=== PATIENT | female | born 1945 | race Caucasian/White ===

== ENCOUNTER 2017-10-05 11:45 | Inpatient (IN) | payer MEDICARE, OTHER ==
[2017-10-05] MEDS: SODIUM CHLORIDE 0.9% 1L BAG IV* (12:12)
[2017-10-05 12:14] LABS: ADD MAN DIFF? NO
[2017-10-05 12:16] LABS: WHITE BLOOD COUNT 12.5 10^3/ul (4.8-10.8)
[2017-10-05 12:16] LABS: BASOPHIL # 0.1 10^3/ul (0.0-0.1); BASOPHILS % 0.4 % (0.0-2.0); EOSINOPHILS # 0.1 10^3/ul (0.0-0.5); HEMATOCRIT 24.6 % (37.0-47.0); HEMOGLOBIN 8.3 g/dl (12.0-16.0); LYMPHOCYTES # 1.4 10^3/ul (0.8-2.9); LYMPHOCYTES % 10.8 % (15.0-51.0); MEAN CORPUSCULAR HEMOGLOBIN 35.8 pg (29.0-33.0); MEAN CORPUSCULAR HGB CONC 33.7 g/dl (32.0-37.0); MEAN PLATELET VOLUME 9.5 fl (7.4-10.4); MONOCYTE # 0.8 10^3/ul (0.3-0.9); MONOCYTES % 6.3 % (0.0-11.0); NEUTROPHIL # 10.1 10^3/ul (1.6-7.5); NEUTROPHILS % 80.9 % (39.0-77.0); PLATELET COUNT 305 10^3/UL (140-415); RED BLOOD COUNT 2.32 10^6/ul (4.20-5.40); RED CELL DISTRIBUTION WIDTH 13.7 % (11.5-14.5)
[2017-10-05] MEDS: ACYCLOVIR 500 MG in SOD CHLORIDE 0.9% 100 ML IVPB ×2 (12:30→21:17)
[2017-10-05 12:34] LABS: PROTIME 13.3 Sec (11.9-14.9)
[2017-10-05 12:35] LABS: PARTIAL THROMBOPLASTIN TIME 29.9 Sec (25.0-35.0)
[2017-10-05 12:40] LABS: ADD UMIC YES; UR ASCORBIC ACID 40 mg/dL (NEGATIVE); UR BILIRUBIN (Dip) NEGATIVE (NEGATIVE); UR BLOOD (Dip) NEGATIVE (NEGATIVE); UR CLARITY CLOUDY (CLEAR); UR COLOR YELLOW (YELLOW); UR GLUCOSE (Dip) 3+ mg/dL (NEGATIVE); UR KETONES (Dip) NEGATIVE (NEGATIVE); UR LEUKOCYTE ESTERASE (Dip) NEGATIVE Leu/ul (NEGATIVE); UR NITRITE (Dip) NEGATIVE (NEGATIVE); UR RBC 0 /HPF (0-5); UR SPECIFIC GRAVITY (Dip) 1.008 (1.003-1.030); UR TOTAL PROTEIN (Dip) 1+ mg/dl (NEGATIVE); UR UROBILINOGEN (Dip) NEGATIVE (NEGATIVE); UR WBC 0 /HPF (0-5)
[2017-10-05 12:52] LABS: LACTIC ACID 1.5 mmol/L (0.5-2.0)
[2017-10-05 12:53] LABS: ALANINE AMINOTRANSFERASE 129 IU/L (13-69); ALBUMIN 4.3 g/dl (3.3-4.9); ALBUMIN/GLOBULIN RATIO 1.13; ALKALINE PHOSPHATASE 146 IU/L (42-121); ANION GAP 15 (8-16); ASPARTATE AMINO TRANSFERASE 163 IU/L (15-46); BILIRUBIN,INDIRECT 0.1 mg/dl (0-1.1); BILIRUBIN,TOTAL 0.1 mg/dl (0.2-1.3); BLOOD UREA NITROGEN 39 mg/dl (7-20); CALCIUM 10.9 mg/dl (8.4-10.2); CARBON DIOXIDE 26 mmol/L (21-31); CHLORIDE 101 mmol/L (97-110); CREATININE 1.81 mg/dl (0.44-1.00); GLUCOSE 216 mg/dl (70-220); POTASSIUM 4.5 mmol/L (3.5-5.1); SODIUM 137 mmol/L (135-144); TOTAL PROTEIN 8.1 g/dl (6.1-8.1)
[2017-10-05 13:08] LABS: TROPONIN-I 0.206 ng/ml (0.000-0.120)
[2017-10-05] MEDS: LEVOFLOXACIN 750MG/D5W (PMX) 150 ML IVPB (13:48)
[2017-10-05] MEDS ORDERED: BISACODYL 10 MG SUPP PR (14:00)
[2017-10-05] MEDS ORDERED: NACL 0.9% 3 ML SYG IV (14:00)
[2017-10-05] MEDS ORDERED: NITROGLYCERIN (SL) 0.4 MG TAB SL (14:00)
[2017-10-05] MEDS ORDERED: ONDANSETRON 4 MG INJ IV (14:00)
[2017-10-05] MEDS ORDERED: DOCUSATE SODIUM 100 MG CAP PO (14:00)
[2017-10-05] MEDS ORDERED: MAGNESIUM HYDROXIDE 30ML CUP PO (14:00)
[2017-10-05] MEDS ORDERED: ACETAMINOPHEN 650 MG SUPP PR (14:00)
[2017-10-05] MEDS ORDERED: ONDANSETRON 4 MG TAB GTB (14:30)
[2017-10-05] MEDS: VANCOMYCIN 1 GM (PMX) 250 ML IVPB (14:40)
[2017-10-05] MEDS ORDERED: GLUCAGON 1 MG INJ IM (15:30)
[2017-10-05] MEDS ORDERED: GLUCOSE GEL 15 GRAM TUBE BUCCAL (15:30)
[2017-10-05] MEDS ORDERED: GLUCOSE GEL 15 GRAM TUBE PO ×2 (15:30)
[2017-10-05] MEDS ORDERED: DEXTROSE 50% 50 ML SYRINGE IV ×2 (15:30)
[2017-10-05] MEDS: SOD CHLORIDE 0.9% 1,000 ML IV (16:12)
[2017-10-05 18:25] LABS: LACTIC ACID 1.2 mmol/L (0.5-2.0)
[2017-10-05 18:26] LABS: CREATINE KINASE 101 IU/L (23-200)
[2017-10-05] MEDS: INSULIN ASPART [NOVOLOG] 3 ML PEN SC ×2 (18:26→21:00)
[2017-10-05 18:38] LABS: CK INDEX 1.5
[2017-10-05 18:45] LABS: TROPONIN-I 0.205 ng/ml (0.000-0.120)
[2017-10-05] MEDS ORDERED: PENDING SANTYL ORDER FOR WOUND CARE XX (19:00)
[2017-10-05] MEDS: ALBUTEROL/IPRATROPIUM (NEB) 3 ML AMP INH (20:21)
[2017-10-05] MEDS ORDERED: SIMVASTATIN GTB (21:00)
[2017-10-05] MEDS ORDERED: WHEAT DEXTRIN GTB (21:00)
[2017-10-05] MEDS ORDERED: EZETIMIBE GTB (21:00)
[2017-10-05] MEDS ORDERED: FAMOTIDINE 20 MG INJ IV (21:00)
[2017-10-05] MEDS: EZETIMIBE 10 MG TAB PO (21:17)
[2017-10-05] MEDS: DOCUSATE SODIUM 100 MG CAP PO (21:17)
[2017-10-05] MEDS: ATORVASTATIN 10 MG TAB PO (21:17)
[2017-10-05] MEDS: BACLOFEN 10 MG TAB GTB (21:17)
[2017-10-05] MEDS: HEPARIN 5,000 UNIT/0.5 ML VIAL SC (21:21)
[2017-10-06] MEDS: ACCU-CHEK XX (01:29)
[2017-10-06 01:48] LABS: CREATINE KINASE 95 IU/L (23-200)
[2017-10-06 02:01] LABS: CK INDEX 1.6; CK-MB 1.49 ng/ml (0.0-2.4)
[2017-10-06 02:02] LABS: TROPONIN-I 0.181 ng/ml (0.000-0.120)
[2017-10-06] MEDS: ALBUTEROL/IPRATROPIUM (NEB) 3 ML AMP INH ×4 (02:34→19:31)
[2017-10-06] MEDS: LANSOPRAZOLE 30 MG CAP GTB (05:54)
[2017-10-06] MEDS: SOD CHLORIDE 0.9% 1,000 ML IV ×2 (05:54→09:08)
[2017-10-06] MEDS: HEPARIN 5,000 UNIT/0.5 ML VIAL SC (05:57)
[2017-10-06] MEDS: LEVOTHYROXINE 75 MCG TAB GTB (06:04)
[2017-10-06 06:40] LABS: ADD MAN DIFF? NO
[2017-10-06 06:41] LABS: WHITE BLOOD COUNT 6.3 10^3/ul (4.8-10.8)
[2017-10-06 06:41] LABS: ABNORMAL IP MESSAGE 1; BASOPHILS % 0.3 % (0.0-2.0); EOSINOPHILS # 0.1 10^3/ul (0.0-0.5); EOSINOPHILS % 0.8 % (0.0-7.0); HEMATOCRIT 20.5 % (37.0-47.0); LYMPHOCYTES # 0.5 10^3/ul (0.8-2.9); LYMPHOCYTES % 7.1 % (15.0-51.0); MEAN CORPUSCULAR HEMOGLOBIN 35.3 pg (29.0-33.0); MEAN CORPUSCULAR HGB CONC 32.7 g/dl (32.0-37.0); MEAN CORPUSCULAR VOLUME 107.9 fl (82.0-101.0); MEAN PLATELET VOLUME 9.6 fl (7.4-10.4); MONOCYTE # 0.6 10^3/ul (0.3-0.9); NEUTROPHIL # 5.1 10^3/ul (1.6-7.5); PLATELET COUNT 238 10^3/UL (140-415); RED CELL DISTRIBUTION WIDTH 13.6 % (11.5-14.5)
[2017-10-06 06:53] LABS: HEMOGLOBIN 6.7 g/dl (12.0-16.0); POSITIVE DIFF @See below
[2017-10-06 07:20] LABS: ALANINE AMINOTRANSFERASE 104 IU/L (13-69); ALBUMIN 3.2 g/dl (3.3-4.9); ALBUMIN/GLOBULIN RATIO 0.96; ALKALINE PHOSPHATASE 117 IU/L (42-121); ANION GAP 14 (8-16); ASPARTATE AMINO TRANSFERASE 106 IU/L (15-46); BILIRUBIN,INDIRECT 0.3 mg/dl (0-1.1); BILIRUBIN,TOTAL 0.3 mg/dl (0.2-1.3); BLOOD UREA NITROGEN 29 mg/dl (7-20); CARBON DIOXIDE 20 mmol/L (21-31); CHLORIDE 107 mmol/L (97-110); CHOLESTEROL 139 mg/dl (100-200); CREATININE 1.44 mg/dl (0.44-1.00); GLUCOSE 270 mg/dl (70-220); HDL CHOLESTEROL 23 mg/dl (33-92); MAGNESIUM 1.8 mg/dl (1.7-2.5); POTASSIUM 4.1 mmol/L (3.5-5.1); SODIUM 137 mmol/L (135-144); TOTAL PROTEIN 6.5 g/dl (6.1-8.1)
[2017-10-06 07:27] LABS: FREE T4 (FREE THYROXINE) 0.55 ng/dl (0.78-2.44)
[2017-10-06 07:55] LABS: BAND NEUTROPHILS #M 0.2 10^3/ul (0.0-0.6); BAND NEUTROPHILS % (M) 4 % (0-4); BASOPHILS % (M) 1 % (0-2); EOSINOPHILS % (M) 1 % (0-7); GIANT THROMBO% (M) 1 % (0-0); LYMPHOCYTES #M 0.2 10^3/ul (0.8-2.9); LYMPHOCYTES % (M) 4 % (15-51); MONOCYTE #M 0.3 10^3/ul (0.3-0.9); MONOCYTES % (M) 5 % (0-11); PLATELET ESTIMATE NORMAL; POLYCHROMASIA 2+ (0-0); SEG NEUT #M 5.4 10^3/ul (1.6-7.5); SEGMENTED NEUTROPHILS (M) % 85 % (39-77); SMUDGE%M 8 % (0-0)
[2017-10-06 08:36] LABS: LDL CHOLESTEROL,CALCULATED 5 mg/dl; TRIGLYCERIDES 555 mg/dl (0-149)
[2017-10-06] MEDS: ACYCLOVIR 500 MG in SOD CHLORIDE 0.9% 100 ML IVPB ×2 (09:05→21:53)
[2017-10-06] MEDS: FERROUS SULFATE 60 MG/ML 5ML CUP GTB (09:05)
[2017-10-06] MEDS: CLOPIDOGREL 75 MG TAB PO (09:06)
[2017-10-06] MEDS: LINAGLIPTIN 5 MG TABLET GTB (09:06)
[2017-10-06] MEDS: L ACIDOPHIL/B LACTIS/B LONGUM CAPSULE PO (09:06)
[2017-10-06] MEDS: ASPIRIN 81 MG TAB PO (09:06)
[2017-10-06] MEDS: FENOFIBRATE 145 MG TAB GTB (09:07)
[2017-10-06] MEDS: DOCUSATE SODIUM 100 MG CAP PO ×2 (09:07→21:56)
[2017-10-06] MEDS: BACLOFEN 10 MG TAB GTB ×2 (09:07→21:54)
[2017-10-06] MEDS: CYANOCOBALAMIN 500 MCG TAB GTB (09:07)
[2017-10-06] MEDS: ASCORBIC ACID 500 MG TAB GTB (09:07)
[2017-10-06] MEDS: FOLIC ACID 1 MG TAB GTB (09:07)
[2017-10-06] MEDS: MULTIVITAMINS 30 ML CUP GTB (09:07)
[2017-10-06] MEDS: LISINOPRIL 10 MG TAB GTB (09:07)
[2017-10-06] MEDS: INSULIN ASPART [NOVOLOG] 3 ML PEN SC ×5 (09:22→21:00)
[2017-10-06] MEDS: SOD CHLORIDE 0.9% 250 ML IV* (09:37)
[2017-10-06] MEDS ORDERED: FOLIC ACID 1 MG TAB GTB (10:30)
[2017-10-06 12:17] LABS: CREATINE KINASE 142 IU/L (23-200)
[2017-10-06] MEDS: CIPROFLOXACIN 0.3% 2.5 ML OPH LEFT EYE ×4 (12:19→21:54)
[2017-10-06 12:30] LABS: CK INDEX 3.8; CK-MB 5.41 ng/ml (0.0-2.4)
[2017-10-06 18:25] LABS: IMMEDIATE SPIN CROSSMATCH 1 2
[2017-10-06] MEDS: ATORVASTATIN 10 MG TAB PO (21:00)
[2017-10-06] MEDS: COLLAGENASE 5 GM (UD JAR) TOP (21:56)
[2017-10-06] MEDS: EZETIMIBE 10 MG TAB PO (22:00)
[2017-10-06] MEDS: INSULIN GLARGINE [LANTus] (100 UNITS/ML) SYG SC (22:36)
[2017-10-07] MEDS: INSULIN ASPART [NOVOLOG] 3 ML PEN SC ×9 (01:00→21:58)
[2017-10-07] MEDS: CIPROFLOXACIN 0.3% 2.5 ML OPH LEFT EYE ×6 (01:52→21:36)
[2017-10-07] MEDS: ALBUTEROL/IPRATROPIUM (NEB) 3 ML AMP INH ×4 (02:07→20:42)
[2017-10-07] MEDS: ACCU-CHEK XX ×2 (02:42)
[2017-10-07] MEDS: LANSOPRAZOLE 30 MG CAP GTB (05:48)
[2017-10-07] MEDS: LEVOTHYROXINE 75 MCG TAB GTB (06:05)
[2017-10-07 06:32] LABS: ADD MAN DIFF? NO
[2017-10-07 06:39] LABS: WHITE BLOOD COUNT 6.4 10^3/ul (4.8-10.8)
[2017-10-07 06:39] LABS: BASOPHIL # 0.1 10^3/ul (0.0-0.1); BASOPHILS % 0.9 % (0.0-2.0); EOSINOPHILS # 0.2 10^3/ul (0.0-0.5); EOSINOPHILS % 2.8 % (0.0-7.0); HEMATOCRIT 30.3 % (37.0-47.0); HEMOGLOBIN 10.2 g/dl (12.0-16.0); LYMPHOCYTES # 0.9 10^3/ul (0.8-2.9); LYMPHOCYTES % 14.7 % (15.0-51.0); MEAN CORPUSCULAR HEMOGLOBIN 33.3 pg (29.0-33.0); MEAN CORPUSCULAR HGB CONC 33.7 g/dl (32.0-37.0); MEAN PLATELET VOLUME 10.4 fl (7.4-10.4); MONOCYTE # 0.9 10^3/ul (0.3-0.9); MONOCYTES % 14.2 % (0.0-11.0); NEUTROPHIL # 4.2 10^3/ul (1.6-7.5); NEUTROPHILS % 65.5 % (39.0-77.0); PLATELET COUNT 247 10^3/UL (140-415); RED BLOOD COUNT 3.06 10^6/ul (4.20-5.40); RED CELL DISTRIBUTION WIDTH 16.5 % (11.5-14.5)
[2017-10-07 07:05] LABS: MAGNESIUM 2.1 mg/dl (1.7-2.5)
[2017-10-07 07:05] LABS: PHOSPHORUS 1.7 mg/dl (2.5-4.9)
[2017-10-07 07:09] LABS: ALANINE AMINOTRANSFERASE 90 IU/L (13-69); ALBUMIN 3.3 g/dl (3.3-4.9); ALBUMIN/GLOBULIN RATIO 1.03; ALKALINE PHOSPHATASE 122 IU/L (42-121); ANION GAP 11 (8-16); ASPARTATE AMINO TRANSFERASE 83 IU/L (15-46); BILIRUBIN,INDIRECT 0.4 mg/dl (0-1.1); BILIRUBIN,TOTAL 0.4 mg/dl (0.2-1.3); BLOOD UREA NITROGEN 25 mg/dl (7-20); CARBON DIOXIDE 22 mmol/L (21-31); CHLORIDE 108 mmol/L (97-110); CREATININE 1.24 mg/dl (0.44-1.00); GLUCOSE 237 mg/dl (70-220); POTASSIUM 4.3 mmol/L (3.5-5.1); SODIUM 137 mmol/L (135-144); TOTAL PROTEIN 6.5 g/dl (6.1-8.1)
[2017-10-07] MEDS: COLLAGENASE 5 GM (UD JAR) TOP ×2 (09:00→21:37)
[2017-10-07] MEDS: L ACIDOPHIL/B LACTIS/B LONGUM CAPSULE PO ×2 (09:00)
[2017-10-07] MEDS: FERROUS SULFATE 60 MG/ML 5ML CUP GTB (09:18)
[2017-10-07] MEDS: MULTIVITAMINS 30 ML CUP GTB (09:18)
[2017-10-07] MEDS: DOCUSATE SODIUM 10 MG/ML (10ML CUP) GTB ×2 (09:19→21:36)
[2017-10-07] MEDS: CLOPIDOGREL 75 MG TAB PO (09:21)
[2017-10-07] MEDS: ASCORBIC ACID 500 MG TAB GTB (09:21)
[2017-10-07] MEDS: ASPIRIN 81 MG TAB PO (09:21)
[2017-10-07] MEDS: FENOFIBRATE 145 MG TAB GTB (09:21)
[2017-10-07] MEDS: FOLIC ACID 1 MG TAB GTB (09:21)
[2017-10-07] MEDS: LINAGLIPTIN 5 MG TABLET GTB (09:21)
[2017-10-07] MEDS: CYANOCOBALAMIN 500 MCG TAB GTB (09:21)
[2017-10-07] MEDS: BACLOFEN 10 MG TAB GTB ×2 (09:21→21:31)
[2017-10-07] MEDS: LISINOPRIL 10 MG TAB GTB (09:22)
[2017-10-07] MEDS: ACYCLOVIR 500 MG in SOD CHLORIDE 0.9% 100 ML IVPB ×2 (09:22→21:37)
[2017-10-07] MEDS: MUPIROCIN 2% 22 GM OINT TOP ×2 (12:48→21:37)
[2017-10-07] MEDS: EZETIMIBE 10 MG TAB PO (21:30)
[2017-10-07] MEDS: ATORVASTATIN 10 MG TAB PO (21:31)
[2017-10-07] MEDS: INSULIN GLARGINE [LANTus] (100 UNITS/ML) SYG SC (21:58)
[2017-10-08] MEDS: CIPROFLOXACIN 0.3% 2.5 ML OPH LEFT EYE ×6 (00:47→21:10)
[2017-10-08] MEDS: INSULIN ASPART [NOVOLOG] 3 ML PEN SC ×9 (00:56→22:51)
[2017-10-08] MEDS: ACCU-CHEK XX ×2 (00:57)
[2017-10-08] MEDS: ALBUTEROL/IPRATROPIUM (NEB) 3 ML AMP INH ×4 (02:15→19:49)
[2017-10-08] MEDS: LEVOTHYROXINE 75 MCG TAB GTB (06:13)
[2017-10-08] MEDS: LANSOPRAZOLE 30 MG CAP GTB (06:14)
[2017-10-08] MEDS: LISINOPRIL 10 MG TAB GTB (09:00)
[2017-10-08 09:14] LABS: ADD MAN DIFF? NO
[2017-10-08] MEDS: COLLAGENASE 5 GM (UD JAR) TOP ×2 (09:17→21:08)
[2017-10-08] MEDS: ACYCLOVIR 500 MG in SOD CHLORIDE 0.9% 100 ML IVPB ×2 (09:17→21:24)
[2017-10-08] MEDS: FENOFIBRATE 145 MG TAB GTB (09:18)
[2017-10-08] MEDS: FOLIC ACID 1 MG TAB GTB (09:18)
[2017-10-08] MEDS: L ACIDOPHIL/B LACTIS/B LONGUM CAPSULE PO (09:18)
[2017-10-08] MEDS: ASCORBIC ACID 500 MG TAB GTB (09:18)
[2017-10-08] MEDS: LINAGLIPTIN 5 MG TABLET GTB (09:18)
[2017-10-08] MEDS: ASPIRIN 81 MG TAB PO (09:18)
[2017-10-08] MEDS: CLOPIDOGREL 75 MG TAB PO (09:18)
[2017-10-08] MEDS: DOCUSATE SODIUM 10 MG/ML (10ML CUP) GTB ×2 (09:20→21:07)
[2017-10-08] MEDS: MULTIVITAMINS 30 ML CUP GTB (09:20)
[2017-10-08] MEDS: MUPIROCIN 2% 22 GM OINT TOP ×2 (09:20→21:11)
[2017-10-08] MEDS: FERROUS SULFATE 60 MG/ML 5ML CUP GTB (09:20)
[2017-10-08 09:23] LABS: WHITE BLOOD COUNT 5.9 10^3/ul (4.8-10.8)
[2017-10-08 09:23] LABS: BASOPHILS % 0.7 % (0.0-2.0); EOSINOPHILS # 0.3 10^3/ul (0.0-0.5); EOSINOPHILS % 5.3 % (0.0-7.0); HEMATOCRIT 29.8 % (37.0-47.0); HEMOGLOBIN 10.2 g/dl (12.0-16.0); LYMPHOCYTES % 17.5 % (15.0-51.0); MEAN CORPUSCULAR HEMOGLOBIN 34.6 pg (29.0-33.0); MEAN CORPUSCULAR HGB CONC 34.2 g/dl (32.0-37.0); MEAN PLATELET VOLUME 10.4 fl (7.4-10.4); MONOCYTE # 0.5 10^3/ul (0.3-0.9); NEUTROPHIL # 3.9 10^3/ul (1.6-7.5); NEUTROPHILS % 65.8 % (39.0-77.0); PLATELET COUNT 260 10^3/UL (140-415); RED BLOOD COUNT 2.95 10^6/ul (4.20-5.40); RED CELL DISTRIBUTION WIDTH 16.2 % (11.5-14.5)
[2017-10-08 09:43] LABS: PHOSPHORUS 1.5 mg/dl (2.5-4.9)
[2017-10-08 09:43] LABS: MAGNESIUM 2.1 mg/dl (1.7-2.5)
[2017-10-08 09:51] LABS: ALANINE AMINOTRANSFERASE 71 IU/L (13-69); ALBUMIN 3.4 g/dl (3.3-4.9); ALBUMIN/GLOBULIN RATIO 1.03; ALKALINE PHOSPHATASE 109 IU/L (42-121); ANION GAP 10 (8-16); ASPARTATE AMINO TRANSFERASE 59 IU/L (15-46); BILIRUBIN,INDIRECT 0.1 mg/dl (0-1.1); BILIRUBIN,TOTAL 0.1 mg/dl (0.2-1.3); BLOOD UREA NITROGEN 28 mg/dl (7-20); CALCIUM 8.9 mg/dl (8.4-10.2); CARBON DIOXIDE 26 mmol/L (21-31); CHLORIDE 106 mmol/L (97-110); CREATININE 1.21 mg/dl (0.44-1.00); GLUCOSE 201 mg/dl (70-220); POTASSIUM 4.7 mmol/L (3.5-5.1); SODIUM 137 mmol/L (135-144); TOTAL PROTEIN 6.7 g/dl (6.1-8.1)
[2017-10-08] MEDS: BACLOFEN 10 MG TAB GTB ×2 (09:52→21:24)
[2017-10-08] MEDS: CYANOCOBALAMIN 500 MCG TAB GTB (09:53)
[2017-10-08] MEDS: NEUTRA-PHOS 250 MG PACKET GTB ×2 (13:37→21:07)
[2017-10-08] MEDS: EZETIMIBE 10 MG TAB PO (21:08)
[2017-10-08] MEDS: ATORVASTATIN 10 MG TAB PO (21:08)
[2017-10-08] MEDS: INSULIN GLARGINE [LANTus] (100 UNITS/ML) SYG SC (21:14)
[2017-10-09] MEDS: CIPROFLOXACIN 0.3% 2.5 ML OPH LEFT EYE ×6 (01:23→22:51)
[2017-10-09] MEDS: INSULIN ASPART [NOVOLOG] 3 ML PEN SC ×9 (01:33→23:03)
[2017-10-09] MEDS: ALBUTEROL/IPRATROPIUM (NEB) 3 ML AMP INH ×4 (01:41→20:42)
[2017-10-09] MEDS: ACCU-CHEK XX ×2 (02:00)
[2017-10-09] MEDS: LANSOPRAZOLE 30 MG CAP GTB (05:46)
[2017-10-09 06:29] LABS: ADD MAN DIFF? NO
[2017-10-09 06:33] LABS: WHITE BLOOD COUNT 6.5 10^3/ul (4.8-10.8)
[2017-10-09 06:33] LABS: BASOPHILS % 0.6 % (0.0-2.0); EOSINOPHILS # 0.2 10^3/ul (0.0-0.5); EOSINOPHILS % 3.7 % (0.0-7.0); HEMATOCRIT 30.4 % (37.0-47.0); HEMOGLOBIN 10.2 g/dl (12.0-16.0); LYMPHOCYTES # 1.3 10^3/ul (0.8-2.9); LYMPHOCYTES % 20.4 % (15.0-51.0); MEAN CORPUSCULAR HEMOGLOBIN 33.7 pg (29.0-33.0); MEAN CORPUSCULAR HGB CONC 33.6 g/dl (32.0-37.0); MEAN CORPUSCULAR VOLUME 100.3 fl (82.0-101.0); MEAN PLATELET VOLUME 10.2 fl (7.4-10.4); MONOCYTE # 0.5 10^3/ul (0.3-0.9); MONOCYTES % 8.3 % (0.0-11.0); NEUTROPHIL # 4.3 10^3/ul (1.6-7.5); NEUTROPHILS % 65.9 % (39.0-77.0); NUCLEATED RED BLOOD CELLS% 0.3 /100WBC (0.0-0.0); PLATELET COUNT 275 10^3/UL (140-415); RED BLOOD COUNT 3.03 10^6/ul (4.20-5.40); RED CELL DISTRIBUTION WIDTH 15.7 % (11.5-14.5)
[2017-10-09] MEDS: LEVOTHYROXINE 75 MCG TAB GTB (06:34)
[2017-10-09 07:03] LABS: MAGNESIUM 2.1 mg/dl (1.7-2.5)
[2017-10-09 07:03] LABS: PHOSPHORUS 2.3 mg/dl (2.5-4.9)
[2017-10-09 07:09] LABS: ALANINE AMINOTRANSFERASE 65 IU/L (13-69); ALBUMIN 3.5 g/dl (3.3-4.9); ALBUMIN/GLOBULIN RATIO 1.02; ALKALINE PHOSPHATASE 101 IU/L (42-121); ANION GAP 11 (8-16); ASPARTATE AMINO TRANSFERASE 53 IU/L (15-46); BILIRUBIN,INDIRECT 0.2 mg/dl (0-1.1); BILIRUBIN,TOTAL 0.2 mg/dl (0.2-1.3); BLOOD UREA NITROGEN 27 mg/dl (7-20); CALCIUM 8.4 mg/dl (8.4-10.2); CARBON DIOXIDE 23 mmol/L (21-31); CHLORIDE 104 mmol/L (97-110); CREATININE 1.19 mg/dl (0.44-1.00); GLUCOSE 214 mg/dl (70-220); POTASSIUM 4.3 mmol/L (3.5-5.1); SODIUM 134 mmol/L (135-144); TOTAL PROTEIN 6.9 g/dl (6.1-8.1)
[2017-10-09] MEDS: ACYCLOVIR 500 MG in SOD CHLORIDE 0.9% 100 ML IVPB (10:39)
[2017-10-09] MEDS: L ACIDOPHIL/B LACTIS/B LONGUM CAPSULE PO (10:39)
[2017-10-09] MEDS: CLOPIDOGREL 75 MG TAB PO (10:39)
[2017-10-09] MEDS: ASPIRIN 81 MG TAB PO (10:40)
[2017-10-09] MEDS: FOLIC ACID 1 MG TAB GTB (10:40)
[2017-10-09] MEDS: LINAGLIPTIN 5 MG TABLET GTB (10:40)
[2017-10-09] MEDS: FENOFIBRATE 145 MG TAB GTB (10:40)
[2017-10-09] MEDS: NEUTRA-PHOS 250 MG PACKET GTB ×3 (10:40→22:43)
[2017-10-09] MEDS: CYANOCOBALAMIN 500 MCG TAB GTB (10:40)
[2017-10-09] MEDS: FERROUS SULFATE 60 MG/ML 5ML CUP GTB (10:41)
[2017-10-09] MEDS: MULTIVITAMINS 30 ML CUP GTB (10:41)
[2017-10-09] MEDS: DOCUSATE SODIUM 10 MG/ML (10ML CUP) GTB ×2 (10:41→22:40)
[2017-10-09] MEDS: ASCORBIC ACID 500 MG TAB GTB (10:41)
[2017-10-09] MEDS: BACLOFEN 10 MG TAB GTB ×2 (10:41→22:39)
[2017-10-09] MEDS: COLLAGENASE 5 GM (UD JAR) TOP ×2 (10:41→22:40)
[2017-10-09] MEDS: MUPIROCIN 2% 22 GM OINT TOP ×2 (10:42→22:50)
[2017-10-09] MEDS: ACYCLOVIR 800 MG TAB PO ×4 (14:05→22:39)
[2017-10-09] MEDS: EZETIMIBE 10 MG TAB PO (22:39)
[2017-10-09] MEDS: ATORVASTATIN 10 MG TAB PO (22:39)
[2017-10-09] MEDS: INSULIN GLARGINE [LANTus] (100 UNITS/ML) SYG SC (22:57)
[2017-10-10] MEDS: CIPROFLOXACIN 0.3% 2.5 ML OPH LEFT EYE ×6 (01:25→22:59)
[2017-10-10] MEDS: INSULIN ASPART [NOVOLOG] 3 ML PEN SC ×9 (01:30→22:53)
[2017-10-10] MEDS: ACCU-CHEK XX (01:31)
[2017-10-10] MEDS: ALBUTEROL/IPRATROPIUM (NEB) 3 ML AMP INH ×4 (01:59→20:09)
[2017-10-10] MEDS: LANSOPRAZOLE 30 MG CAP GTB (05:52)
[2017-10-10] MEDS: LEVOTHYROXINE 75 MCG TAB GTB (05:53)
[2017-10-10] MEDS: COLLAGENASE 5 GM (UD JAR) TOP ×2 (09:47→22:56)
[2017-10-10] MEDS: FERROUS SULFATE 60 MG/ML 5ML CUP GTB (09:47)
[2017-10-10] MEDS: DOCUSATE SODIUM 10 MG/ML (10ML CUP) GTB ×2 (09:48→22:48)
[2017-10-10] MEDS: MULTIVITAMINS 30 ML CUP GTB (09:48)
[2017-10-10] MEDS: FOLIC ACID 1 MG TAB GTB (09:49)
[2017-10-10] MEDS: CYANOCOBALAMIN 500 MCG TAB GTB (09:49)
[2017-10-10] MEDS: FENOFIBRATE 145 MG TAB GTB (09:49)
[2017-10-10] MEDS: NEUTRA-PHOS 250 MG PACKET GTB ×3 (09:49→22:49)
[2017-10-10] MEDS: BACLOFEN 10 MG TAB GTB ×2 (09:49→22:49)
[2017-10-10] MEDS: LINAGLIPTIN 5 MG TABLET GTB (09:50)
[2017-10-10] MEDS: CLOPIDOGREL 75 MG TAB PO (09:50)
[2017-10-10] MEDS: ASCORBIC ACID 500 MG TAB GTB (09:50)
[2017-10-10] MEDS: ASPIRIN 81 MG TAB PO (09:50)
[2017-10-10] MEDS: LISINOPRIL 5 MG TAB PO (09:50)
[2017-10-10] MEDS: L ACIDOPHIL/B LACTIS/B LONGUM CAPSULE PO (09:51)
[2017-10-10] MEDS: MUPIROCIN 2% 22 GM OINT TOP ×2 (09:51→22:58)
[2017-10-10] MEDS: ACYCLOVIR 800 MG TAB PO ×5 (09:55→22:48)
[2017-10-10] MEDS: ATORVASTATIN 10 MG TAB PO (21:00)
[2017-10-10] MEDS: INSULIN GLARGINE [LANTus] (100 UNITS/ML) SYG SC (22:52)
[2017-10-11] MEDS: EZETIMIBE 10 MG TAB PO ×2 (01:17→21:52)
[2017-10-11] MEDS: CIPROFLOXACIN 0.3% 2.5 ML OPH LEFT EYE ×6 (01:18→21:03)
[2017-10-11] MEDS: INSULIN ASPART [NOVOLOG] 3 ML PEN SC ×9 (01:23→23:57)
[2017-10-11] MEDS: ALBUTEROL/IPRATROPIUM (NEB) 3 ML AMP INH ×4 (01:31→20:16)
[2017-10-11] MEDS: ACCU-CHEK XX (02:00)
[2017-10-11] MEDS: LANSOPRAZOLE 30 MG CAP GTB (05:49)
[2017-10-11] MEDS: LEVOTHYROXINE 75 MCG TAB GTB (05:49)
[2017-10-11] MEDS: LISINOPRIL 5 MG TAB PO (09:00)
[2017-10-11] MEDS: MULTIVITAMINS 30 ML CUP GTB (09:28)
[2017-10-11] MEDS: BACLOFEN 10 MG TAB GTB ×2 (09:29→21:01)
[2017-10-11] MEDS: ASCORBIC ACID 500 MG TAB GTB (09:29)
[2017-10-11] MEDS: CLOPIDOGREL 75 MG TAB PO (09:29)
[2017-10-11] MEDS: NEUTRA-PHOS 250 MG PACKET GTB ×3 (09:29→21:01)
[2017-10-11] MEDS: ASPIRIN 81 MG TAB PO (09:29)
[2017-10-11] MEDS: FERROUS SULFATE 60 MG/ML 5ML CUP GTB (09:30)
[2017-10-11] MEDS: FOLIC ACID 1 MG TAB GTB (09:30)
[2017-10-11] MEDS: DOCUSATE SODIUM 10 MG/ML (10ML CUP) GTB ×2 (09:30→20:59)
[2017-10-11] MEDS: MUPIROCIN 2% 22 GM OINT TOP ×2 (09:31→21:05)
[2017-10-11] MEDS: L ACIDOPHIL/B LACTIS/B LONGUM CAPSULE PO (09:31)
[2017-10-11] MEDS: FENOFIBRATE 145 MG TAB GTB (09:31)
[2017-10-11] MEDS: LINAGLIPTIN 5 MG TABLET GTB (09:31)
[2017-10-11] MEDS: COLLAGENASE 5 GM (UD JAR) TOP ×2 (09:31→20:58)
[2017-10-11] MEDS: ACYCLOVIR 800 MG TAB PO ×5 (09:35→21:00)
[2017-10-11] MEDS: CYANOCOBALAMIN 500 MCG TAB GTB (09:35)
[2017-10-11] MEDS: INSULIN GLARGINE [LANTus] (100 UNITS/ML) SYG SC (21:10)
[2017-10-12] MEDS: CIPROFLOXACIN 0.3% 2.5 ML OPH LEFT EYE ×5 (00:01→18:02)
[2017-10-12] MEDS: ACCU-CHEK XX (01:37)
[2017-10-12] MEDS: ALBUTEROL/IPRATROPIUM (NEB) 3 ML AMP INH ×3 (02:05→13:32)
[2017-10-12] MEDS: LANSOPRAZOLE 30 MG CAP GTB (06:20)
[2017-10-12] MEDS: LEVOTHYROXINE 75 MCG TAB GTB (06:20)
[2017-10-12] MEDS: INSULIN ASPART [NOVOLOG] 3 ML PEN SC ×5 (06:34→17:20)
[2017-10-12] MEDS: COLLAGENASE 5 GM (UD JAR) TOP (10:04)
[2017-10-12] MEDS: L ACIDOPHIL/B LACTIS/B LONGUM CAPSULE PO (10:05)
[2017-10-12] MEDS: NEUTRA-PHOS 250 MG PACKET GTB ×2 (10:05→12:22)
[2017-10-12] MEDS: ASCORBIC ACID 500 MG TAB GTB (10:06)
[2017-10-12] MEDS: CLOPIDOGREL 75 MG TAB PO (10:06)
[2017-10-12] MEDS: LISINOPRIL 5 MG TAB PO (10:07)
[2017-10-12] MEDS: FOLIC ACID 1 MG TAB GTB (10:07)
[2017-10-12] MEDS: FENOFIBRATE 145 MG TAB GTB (10:08)
[2017-10-12] MEDS: BACLOFEN 10 MG TAB GTB (10:08)
[2017-10-12] MEDS: ASPIRIN 81 MG TAB PO (10:09)
[2017-10-12] MEDS: LINAGLIPTIN 5 MG TABLET GTB (10:09)
[2017-10-12] MEDS: FERROUS SULFATE 60 MG/ML 5ML CUP GTB (10:10)
[2017-10-12] MEDS: CYANOCOBALAMIN 500 MCG TAB GTB (10:10)
[2017-10-12] MEDS: MULTIVITAMINS 30 ML CUP GTB (10:11)
[2017-10-12] MEDS: ACYCLOVIR 800 MG TAB PO ×4 (10:11→18:02)
[2017-10-12] MEDS: DOCUSATE SODIUM 10 MG/ML (10ML CUP) GTB (10:11)
[2017-10-12] MEDS: MUPIROCIN 2% 22 GM OINT TOP (10:12)
== END 2017-10-12 19:20 | DRG 596 ==
LOC: PP2 10-12 15:28 → E/R 11:45 → MS4 13:49
PROC: 30233N1 Transfusion of Nonautologous Red Blood Cells into Peripheral Vein, Percutaneous Approach (ICD-10-PCS; principal; 2017-10-06)
DX: B02.9 Zoster without complications (principal); N17.9 Acute kidney failure, unspecified; D62 Acute posthemorrhagic anemia; I69.354 Hemiplegia and hemiparesis following cerebral infarction affecting left non-dominant side; R13.10 Dysphagia, unspecified; Z93.1 Gastrostomy status; D64.9 Anemia, unspecified; I69.391 Dysphagia following cerebral infarction; I69.320 Aphasia following cerebral infarction; I69.321 Dysphasia following cerebral infarction; E11.9 Type 2 diabetes mellitus without complications; I10 Essential (primary) hypertension; E03.9 Hypothyroidism, unspecified; R74.8 Abnormal levels of other serum enzymes; E78.5 Hyperlipidemia, unspecified; Z79.4 Long term (current) use of insulin; Z79.82 Long term (current) use of aspirin; Z74.01 Bed confinement status; Z95.5 Presence of coronary angioplasty implant and graft
CPT/HCPCS: 36415; 36430; 71045; 76705; 80053; 80061; 81001; 82550; 82553; 82962; 83036; 83605; 83735; 84100; 84439; 84443; 84484; 85025; 85610; 85730; 86850; 86900; 86901; 86920; 87040; 87081; 87086; 93005; 93306; 94640; 94664; 96374; 96375; 99285-25

== ENCOUNTER 2017-10-25 10:00 | Emergency (ER) | payer MEDICARE, OTHER ==
[2017-10-25] MEDS: DIATR MEGLU/DIATRIZOATE SODIUM 120 ML BTL (11:32)
== END 2017-10-25 12:35 | disposition home or self-care (01) ==
LOC: E/R 10:00
DX: Z43.1 Encounter for attention to gastrostomy (principal); I50.9 Heart failure, unspecified; I10 Essential (primary) hypertension; E11.9 Type 2 diabetes mellitus without complications; Z79.4 Long term (current) use of insulin; Z79.82 Long term (current) use of aspirin; Z98.61 Coronary angioplasty status
CPT/HCPCS: 74018; 99283-25

== ENCOUNTER 2018-08-19 19:10 | Observation (INO) | payer MEDICARE, OTHER ==
[2018-08-19 20:35] LABS: ADD MAN DIFF? NO
[2018-08-19 20:38] LABS: WHITE BLOOD COUNT 7.2 10^3/ul (4.8-10.8)
[2018-08-19 20:38] LABS: BASOPHIL # 0.1 10^3/ul (0.0-0.1); EOSINOPHILS # 0.2 10^3/ul (0.0-0.5); EOSINOPHILS % 2.1 % (0.0-7.0); HEMATOCRIT 31.7 % (37.0-47.0); HEMOGLOBIN 10.4 g/dl (12.0-16.0); LYMPHOCYTES # 2.2 10^3/ul (0.8-2.9); LYMPHOCYTES % 30.6 % (15.0-51.0); MEAN CORPUSCULAR HEMOGLOBIN 35.7 pg (29.0-33.0); MEAN CORPUSCULAR HGB CONC 32.8 g/dl (32.0-37.0); MEAN CORPUSCULAR VOLUME 108.9 fl (82.0-101.0); MEAN PLATELET VOLUME 10.3 fl (7.4-10.4); MONOCYTE # 0.7 10^3/ul (0.3-0.9); MONOCYTES % 9.7 % (0.0-11.0); NEUTROPHILS % 55.9 % (39.0-77.0); PLATELET COUNT 217 10^3/UL (140-415); RED BLOOD COUNT 2.91 10^6/ul (4.20-5.40); RED CELL DISTRIBUTION WIDTH 14.6 % (11.5-14.5)
[2018-08-19 20:55] LABS: ALANINE AMINOTRANSFERASE 26 IU/L (13-69); ALBUMIN 4.5 g/dl (3.3-4.9); ALBUMIN/GLOBULIN RATIO 1.04; ALKALINE PHOSPHATASE 98 IU/L (42-121); ANION GAP 6 (5-13); ASPARTATE AMINO TRANSFERASE 24 IU/L (15-46); BILIRUBIN,INDIRECT 0.5 mg/dl (0-1.1); BILIRUBIN,TOTAL 0.5 mg/dl (0.2-1.3); BLOOD UREA NITROGEN 43 mg/dl (7-20); CALCIUM 11.5 mg/dl (8.4-10.2); CARBON DIOXIDE 29 mmol/L (21-31); CHLORIDE 109 mmol/L (97-110); CREATININE 1.07 mg/dl (0.44-1.00); GLUCOSE 197 mg/dl (70-220); LIPASE 203 U/L (23-300); POTASSIUM 4.3 mmol/L (3.5-5.1); SODIUM 144 mmol/L (135-144); TOTAL PROTEIN 8.8 g/dl (6.1-8.1)
[2018-08-19 20:57] LABS: PROTIME 12.3 Sec (11.9-14.9)
[2018-08-19] MEDS: IOHEXOL 300MG/ML 30 ML BTL (21:18)
[2018-08-19] MEDS: SOD CHLORIDE 0.9% 1,000 ML IV (22:41)
[2018-08-19] MEDS ORDERED: ACETAMINOPHEN 650 MG SUPP PR (23:30)
[2018-08-19] MEDS ORDERED: ONDANSETRON 4 MG INJ IV (23:30)
[2018-08-19] MEDS ORDERED: NACL 0.9% 3 ML SYG IV (23:30)
[2018-08-19] MEDS: HEPARIN 5,000 UNIT/1 ML VIAL SC (23:45)
[2018-08-19] MEDS ORDERED: DEXTROSE 50% 50 ML SYRINGE IV ×2 (23:45)
[2018-08-19] MEDS: FAMOTIDINE 20 MG INJ IV (23:45)
[2018-08-19] MEDS ORDERED: GLUCOSE GEL 15 GRAM TUBE PO ×2 (23:45)
[2018-08-19] MEDS ORDERED: GLUCOSE GEL 15 GRAM TUBE BUCCAL (23:45)
[2018-08-19] MEDS ORDERED: GLUCAGON 1 MG INJ IM (23:45)
[2018-08-20] MEDS: DEXTROSE 5%-0.45% NACL 1,000 ML IV ×2 (00:40→16:05)
[2018-08-20 05:07] LABS: ADD MAN DIFF? NO
[2018-08-20 05:19] LABS: WHITE BLOOD COUNT 8.5 10^3/ul (4.8-10.8)
[2018-08-20 05:19] LABS: BASOPHIL # 0.1 10^3/ul (0.0-0.1); BASOPHILS % 0.9 % (0.0-2.0); EOSINOPHILS # 0.2 10^3/ul (0.0-0.5); HEMATOCRIT 28.4 % (37.0-47.0); HEMOGLOBIN 9.1 g/dl (12.0-16.0); LYMPHOCYTES # 1.7 10^3/ul (0.8-2.9); LYMPHOCYTES % 20.3 % (15.0-51.0); MEAN CORPUSCULAR HEMOGLOBIN 35.3 pg (29.0-33.0); MEAN CORPUSCULAR VOLUME 110.1 fl (82.0-101.0); MEAN PLATELET VOLUME 11.2 fl (7.4-10.4); MONOCYTE # 0.7 10^3/ul (0.3-0.9); MONOCYTES % 8.6 % (0.0-11.0); NEUTROPHIL # 5.8 10^3/ul (1.6-7.5); NEUTROPHILS % 67.7 % (39.0-77.0); PLATELET COUNT 193 10^3/UL (140-415); RED BLOOD COUNT 2.58 10^6/ul (4.20-5.40); RED CELL DISTRIBUTION WIDTH 14.6 % (11.5-14.5)
[2018-08-20 05:41] LABS: ANION GAP 4 (5-13); BLOOD UREA NITROGEN 35 mg/dl (7-20); CALCIUM 10.3 mg/dl (8.4-10.2); CARBON DIOXIDE 27 mmol/L (21-31); CHLORIDE 114 mmol/L (97-110); CREATININE 1.04 mg/dl (0.44-1.00); GLUCOSE 242 mg/dl (70-220); POTASSIUM 3.8 mmol/L (3.5-5.1); SODIUM 145 mmol/L (135-144)
[2018-08-20 05:41] LABS: HEMOGLOBIN A1C 6.6 % (0-5.9)
[2018-08-20] MEDS: HEPARIN 5,000 UNIT/1 ML VIAL SC ×3 (06:32→22:20)
[2018-08-20] MEDS: LEVOTHYROXINE 100 MCG VIAL IV (09:03)
[2018-08-20] MEDS: FAMOTIDINE 20 MG INJ IV ×2 (09:03→21:09)
[2018-08-20] MEDS ORDERED: ACETAMINOPHEN 325 MG TAB GTB (17:30)
[2018-08-20] MEDS ORDERED: INSULIN GLARGINE [LANTus] (100 UNITS/ML) SYG SC (20:00)
[2018-08-20] MEDS: INSULIN GLARGINE [LANTus] (100 UNITS/ML) SYG SC (21:08)
[2018-08-20] MEDS: BACLOFEN 10 MG TAB GTB (21:09)
[2018-08-20] MEDS: INSULIN ASPART [NOVOLOG] 3 ML PEN SC (21:13)
[2018-08-20] MEDS: IOHEXOL 300MG/ML 30 ML BTL ×2 (21:46)
[2018-08-21] MEDS: HEPARIN 5,000 UNIT/1 ML VIAL SC (06:34)
[2018-08-21] MEDS: LEVOTHYROXINE 75 MCG TAB GTB (06:46)
[2018-08-21 07:23] LABS: HEMOGLOBIN A1C 6.5 % (0-5.9)
[2018-08-21] MEDS ORDERED: INSULIN ASPART [NOVOLOG] 3 ML PEN SC (07:50)
[2018-08-21] MEDS ORDERED: ASPIRIN (EC) 81 MG TAB PO (09:00)
[2018-08-21] MEDS ORDERED: PANTOPRAZOLE (EC) 40 MG TAB PO (09:00)
[2018-08-21] MEDS: CLOPIDOGREL 75 MG TAB PO (09:37)
[2018-08-21] MEDS: ASCORBIC ACID 500 MG TAB GTB (09:37)
[2018-08-21] MEDS: ASPIRIN 81 MG TAB GTB (09:37)
[2018-08-21] MEDS: BACLOFEN 10 MG TAB GTB (09:38)
[2018-08-21] MEDS: FAMOTIDINE 20 MG INJ IV (09:38)
[2018-08-21] MEDS: LISINOPRIL 10 MG TAB GTB (09:43)
[2018-08-21] MEDS: LANSOPRAZOLE 30 MG CAP GTB (09:52)
[2018-08-21] MEDS: INSULIN ASPART [NOVOLOG] 3 ML PEN SC ×2 (10:14→10:15)
[2018-08-22] MEDS ORDERED: ACCU-CHEK XX (02:00)
== END 2018-08-21 12:55 ==
LOC: MS1 22:15 → E/R 19:10
DX: Z43.1 Encounter for attention to gastrostomy (principal); I69.391 Dysphagia following cerebral infarction; I69.320 Aphasia following cerebral infarction; R13.10 Dysphagia, unspecified; I69.354 Hemiplegia and hemiparesis following cerebral infarction affecting left non-dominant side; I11.0 Hypertensive heart disease with heart failure; I50.9 Heart failure, unspecified; E11.9 Type 2 diabetes mellitus without complications; Z79.4 Long term (current) use of insulin; Z79.82 Long term (current) use of aspirin; Z79.02 Long term (current) use of antithrombotics/antiplatelets
CPT/HCPCS: 36415; 74018; 80048; 80053; 82962; 83036; 83690; 84436; 84479; 85025; 85610; 87081; 99285-25

== ENCOUNTER 2018-10-08 07:39 | Emergency (ER) | payer MEDICARE, OTHER ==
[2018-10-08] MEDS: IOHEXOL 300MG/ML 30 ML BTL (08:04)
== END 2018-10-08 08:57 | disposition home or self-care (01) ==
LOC: E/R 07:39
DX: Z43.1 Encounter for attention to gastrostomy (principal); E11.9 Type 2 diabetes mellitus without complications; Z79.4 Long term (current) use of insulin; Z79.01 Long term (current) use of anticoagulants; Z79.82 Long term (current) use of aspirin; Z86.73 Personal history of transient ischemic attack (TIA), and cerebral infarction without residual deficits; Z98.61 Coronary angioplasty status
CPT/HCPCS: 74018; 99283-25

== ENCOUNTER 2018-10-31 20:38 | Inpatient (IN) | payer MEDICARE, OTHER ==
[2018-10-31 21:08] LABS: ADD MAN DIFF? NO
[2018-10-31] MEDS: SODIUM CHLORIDE 0.9% 1L BAG IV* (21:09)
[2018-10-31 21:12] LABS: BASOPHIL # 0.1 10^3/ul (0.0-0.1); BASOPHILS % 0.5 % (0.0-2.0); EOSINOPHILS # 0.3 10^3/ul (0.0-0.5); EOSINOPHILS % 2.7 % (0.0-7.0); LYMPHOCYTES # 1.2 10^3/ul (0.8-2.9); LYMPHOCYTES % 9.7 % (15.0-51.0); MEAN CORPUSCULAR HEMOGLOBIN 35.8 pg (29.0-33.0); MEAN CORPUSCULAR HGB CONC 32.3 g/dl (32.0-37.0); MEAN CORPUSCULAR VOLUME 111.1 fl (82.0-101.0); MEAN PLATELET VOLUME 11.3 fl (7.4-10.4); MONOCYTE # 0.9 10^3/ul (0.3-0.9); MONOCYTES % 6.8 % (0.0-11.0); NEUTROPHIL # 10.2 10^3/ul (1.6-7.5); NEUTROPHILS % 79.8 % (39.0-77.0); PLATELET COUNT 176 10^3/UL (140-415); RED BLOOD COUNT 2.79 10^6/ul (4.20-5.40); RED CELL DISTRIBUTION WIDTH 13.4 % (11.5-14.5)
[2018-10-31 21:12] LABS: WHITE BLOOD COUNT 12.7 10^3/ul (4.8-10.8)
[2018-10-31] MEDS: ACETAMINOPHEN 650 MG SUPP PR (21:15)
[2018-10-31] MEDS: CEFEPIME 1GM/50 ML (PMX) 50 ML IVPB (21:16)
[2018-10-31 21:30] LABS: ALANINE AMINOTRANSFERASE 31 IU/L (13-69); ALBUMIN 3.9 g/dl (3.3-4.9); ALBUMIN/GLOBULIN RATIO 1.14; ALKALINE PHOSPHATASE 88 IU/L (42-121); ANION GAP 9 (5-13); ASPARTATE AMINO TRANSFERASE 29 IU/L (15-46); BILIRUBIN,INDIRECT 0.6 mg/dl (0-1.1); BILIRUBIN,TOTAL 0.6 mg/dl (0.2-1.3); BLOOD UREA NITROGEN 34 mg/dl (7-20); CALCIUM 10.5 mg/dl (8.4-10.2); CARBON DIOXIDE 24 mmol/L (21-31); CHLORIDE 105 mmol/L (97-110); CREATININE 1.38 mg/dl (0.44-1.00); GLUCOSE 316 mg/dl (70-220); LIPASE 101 U/L (23-300); POTASSIUM 4.5 mmol/L (3.5-5.1); SODIUM 138 mmol/L (135-144); TOTAL PROTEIN 7.3 g/dl (6.1-8.1)
[2018-10-31 21:33] LABS: LACTIC ACID 2.2 mmol/L (0.5-2.0)
[2018-10-31 21:33] LABS: INR 0.95; PROTIME 12.8 Sec (11.9-14.9)
[2018-10-31 21:38] LABS: PARTIAL THROMBOPLASTIN TIME 26.9 Sec (23.0-35.0)
[2018-10-31 21:41] LABS: TROPONIN-I 0.042 ng/ml (0.000-0.120)
[2018-10-31] MEDS: SOD CHLORIDE 0.9% IV (21:51)
[2018-10-31] MEDS: VANCOMYCIN 1 GM (PMX) 250 ML IVPB (21:59)
[2018-10-31] MEDS: SOD CHLORIDE 0.9% 1,000 ML IV (23:15)
[2018-10-31] MEDS: ACETAMINOPHEN 325 MG TAB PO (23:54)
[2018-11-01 00:06] LABS: LACTIC ACID 1.1 mmol/L (0.5-2.0)
[2018-11-01] MEDS: DEXAMETHASONE 10 MG/ML 1 ML INJ IV (00:26)
[2018-11-01] MEDS ORDERED: ACETAMINOPHEN 325 MG TAB PO (00:30)
[2018-11-01] MEDS ORDERED: ONDANSETRON 4 MG INJ IV (00:30)
[2018-11-01] MEDS: ALBUMIN HUMAN 25% 100 ML IV ×2 (01:30→01:43)
[2018-11-01 01:50] LABS: LACTIC ACID 0.8 mmol/L (0.5-2.0)
[2018-11-01] MEDS: NORepinephrine 8MG/250 ML (PMX 250 ML IV (06:59)
[2018-11-01] MEDS ORDERED: ETOMIDATE 20 MG INJ (12:00)
[2018-11-01] MEDS ORDERED: VECURONIUM 10 MG VIAL (12:00)
[2018-11-01] MEDS: LIDOCAINE 1% (MPF) 5 ML VIAL SC (14:00)
[2018-11-01] MEDS: IOHEXOL 300MG/ML 30 ML BTL (14:24)
[2018-11-01] MEDS ORDERED: ACETAMINOPHEN 650MG/20.3ML CUP GTB (19:00)
[2018-11-01] MEDS ORDERED: ONDANSETRON 4 MG TAB GTB (19:00)
[2018-11-01] MEDS ORDERED: DEXTROSE 50% 50 ML SYRINGE IV ×2 (20:00)
[2018-11-01] MEDS ORDERED: GLUCOSE GEL 15 GRAM TUBE BUCCAL (20:00)
[2018-11-01] MEDS ORDERED: GLUCOSE GEL 15 GRAM TUBE PO ×2 (20:00)
[2018-11-01] MEDS ORDERED: GLUCAGON 1 MG INJ IM (20:00)
[2018-11-01] MEDS: PANTOPRAZOLE 40 MG INJ IV (20:41)
[2018-11-01] MEDS: METOCLOPRAMIDE 10 MG INJ IV (20:42)
[2018-11-01] MEDS: INSULIN ASPART [NOVOLOG] 3 ML PEN SC (21:22)
[2018-11-01] MEDS: ALBUTEROL/IPRATROPIUM (NEB) 3 ML AMP HHN (21:28)
[2018-11-01] MEDS: BACLOFEN 10 MG TAB GTB (21:56)
[2018-11-01] MEDS: SOD CHLORIDE 0.9% 1,000 ML IV (23:48)
[2018-11-02] MEDS: INSULIN ASPART [NOVOLOG] 3 ML PEN SC ×2 (00:09→05:53)
[2018-11-02] MEDS: METOCLOPRAMIDE 10 MG INJ IV ×4 (00:11→17:58)
[2018-11-02] MEDS: PHENTOLAMINE 5 MG INJ SC (01:22)
[2018-11-02] MEDS: ALBUTEROL/IPRATROPIUM (NEB) 3 ML AMP HHN ×2 (02:15→08:00)
[2018-11-02] MEDS: NORepinephrine 8MG/250 ML (PMX 250 ML IV ×3 (04:18→20:42)
[2018-11-02] MEDS ORDERED: LIDOCAINE 1% (MDV) 20 ML INJ ×2 (04:32→08:54)
[2018-11-02 04:38] LABS: ADD MAN DIFF? NO
[2018-11-02 04:40] LABS: WHITE BLOOD COUNT 17.6 10^3/ul (4.8-10.8)
[2018-11-02 04:40] LABS: ABNORMAL IP MESSAGE 1; BASOPHILS % 0.2 % (0.0-2.0); EOSINOPHILS % 0.1 % (0.0-7.0); HEMATOCRIT 27.9 % (37.0-47.0); HEMOGLOBIN 8.6 g/dl (12.0-16.0); LYMPHOCYTES # 1.5 10^3/ul (0.8-2.9); LYMPHOCYTES % 8.6 % (15.0-51.0); MEAN CORPUSCULAR HEMOGLOBIN 35.4 pg (29.0-33.0); MEAN CORPUSCULAR HGB CONC 30.8 g/dl (32.0-37.0); MEAN CORPUSCULAR VOLUME 114.8 fl (82.0-101.0); MEAN PLATELET VOLUME 11.1 fl (7.4-10.4); MONOCYTE # 1.7 10^3/ul (0.3-0.9); MONOCYTES % 9.7 % (0.0-11.0); NEUTROPHIL # 14.2 10^3/ul (1.6-7.5); NEUTROPHILS % 80.8 % (39.0-77.0); PLATELET COUNT 220 10^3/UL (140-415); RED BLOOD COUNT 2.43 10^6/ul (4.20-5.40); RED CELL DISTRIBUTION WIDTH 13.4 % (11.5-14.5)
[2018-11-02 04:44] LABS: POSITIVE DIFF @See below
[2018-11-02] MEDS: LIDOCAINE 1% (MDV) 20 ML INJ INJ (04:53)
[2018-11-02 05:07] LABS: ANION GAP 16 (5-13); BLOOD UREA NITROGEN 23 mg/dl (7-20); CALCIUM 10.6 mg/dl (8.4-10.2); CARBON DIOXIDE 17 mmol/L (21-31); CHLORIDE 117 mmol/L (97-110); CREATININE 1.09 mg/dl (0.44-1.00); GLUCOSE 291 mg/dl (70-220); SODIUM 150 mmol/L (135-144)
[2018-11-02 05:16] LABS: POTASSIUM 4.1 mmol/L (3.5-5.1)
[2018-11-02] MEDS: PANTOPRAZOLE 40 MG INJ IV ×2 (05:51→17:58)
[2018-11-02] MEDS ORDERED: LANSOPRAZOLE 30 MG CAP GTB (06:00)
[2018-11-02] MEDS: LEVOTHYROXINE 150 MCG TAB GTB (07:00)
[2018-11-02] MEDS ORDERED: GLIMEPIRIDE 2 MG TAB GTB (07:35)
[2018-11-02 07:46] LABS: Allen Test ACCEPTAB; Arterial Base Excess -13.1 mmol/L (-3.0-3); Arterial COHb 0.3 % (0.0-3.0); Arterial Fraction of Oxyhgb 90.4 % (93.0-99.0); Arterial HCO3 11.8 mmol/L (22.0-26.0); Arterial MetHb 0.4 % (0.0-1.5); Arterial pCO2 24.6 mmhg (35-45); MODE MASK - NRB; Site Right Radial
[2018-11-02] MEDS ORDERED: DEXTROSE 50% 50 ML SYRINGE IV ×2 (08:30)
[2018-11-02] MEDS ORDERED: VANCOMYCIN IV PER PHARMACY XX (08:30)
[2018-11-02] MEDS: CLOPIDOGREL 75 MG TAB GTB (09:00)
[2018-11-02] MEDS: FOLIC ACID 1 MG TAB GTB (09:00)
[2018-11-02] MEDS: CYANOCOBALAMIN 500 MCG TAB GTB (09:00)
[2018-11-02] MEDS: LISINOPRIL 10 MG TAB GTB (09:00)
[2018-11-02] MEDS ORDERED: INSULIN ASPART [NOVOLOG] 3 ML PEN SC (09:00)
[2018-11-02] MEDS: BACLOFEN 10 MG TAB GTB ×2 (09:00→20:02)
[2018-11-02] MEDS: ASCORBIC ACID 500 MG TAB GTB (09:00)
[2018-11-02] MEDS ORDERED: LANSOPRAZOLE 30 MG CAP PO (09:00)
[2018-11-02] MEDS ORDERED: LINAGLIPTIN 5 MG TABLET G-TUBE (09:00)
[2018-11-02] MEDS ORDERED: AZTREONAM 2 GM in SOD CHLORIDE 0.9% 100 ML IVPB (09:00)
[2018-11-02] MEDS: INSULIN HUMAN REGULAR 100 UNIT in SOD CHLORIDE 0.9% 99 ML IV (09:22)
[2018-11-02] MEDS: ACCU-CHEK XX ×15 (09:23→23:05)
[2018-11-02] MEDS: VANCOMYCIN 1 GM (PMX) 250 ML IVPB (09:34)
[2018-11-02] MEDS: ENOXAPARIN 30 MG/0.3 ML SYG SC (09:36)
[2018-11-02] MEDS: SOD CHLORIDE 0.45% 1,000 ML IV ×2 (09:55→12:11)
[2018-11-02] MEDS: CEFEPIME 2GM/50 ML (PMX) 50 ML IVPB (09:55)
[2018-11-02] MEDS ORDERED: AZTREONAM 1 GM in SOD CHLORIDE 0.9% 100 ML IVPB (10:00)
[2018-11-02] MEDS ORDERED: AZTREONAM 1 GM/NS (PMX) 50 ML IVPB (10:00)
[2018-11-02] MEDS: ASPIRIN 300 MG SUPP PR (10:03)
[2018-11-02] MEDS: SOD CHLORIDE 0.9% 1,000 ML IV ×2 (11:05→17:59)
[2018-11-02 11:31] LABS: AADO2 Arterial 518.4 mmHg (7.0-24.0); Allen Test V; Arterial Base Excess -10.9 mmol/L (-3.0-3); Arterial Blood Gas Oxygen Sat 98.5 mmHG (95.0-100.0); Arterial COHb 0.2 % (0.0-3.0); Arterial Fraction of Oxyhgb 97.9 % (93.0-99.0); Arterial HCO3 15.3 mmol/L (22.0-26.0); Arterial MetHb 0.4 % (0.0-1.5); Arterial pCO2 35.4 mmhg (35-45); MODE VENT - AC; Site Right Radial
[2018-11-02] MEDS: NA BICARBONATE 8.4% 50 ML SYG IV (12:10)
[2018-11-02] MEDS: PROPOFOL 100 ML IV ×2 (12:18→20:42)
[2018-11-02] MEDS ORDERED: ACETAMINOPHEN 650 MG SUPP PR (14:00)
[2018-11-02 14:11] LABS: ADD UMIC YES; UR ASCORBIC ACID NEGATIVE (NEGATIVE); UR BACTERIA FEW /HPF (NONE SEEN); UR BILIRUBIN (Dip) NEGATIVE (NEGATIVE); UR BLOOD (Dip) 1+ mg/dL (NEGATIVE); UR CLARITY SLIGHTLY CLOUDY (CLEAR); UR COLOR YELLOW (YELLOW); UR GLUCOSE (Dip) 3+ mg/dL (NEGATIVE); UR KETONES (Dip) TRACE mg/dL (NEGATIVE); UR LEUKOCYTE ESTERASE (Dip) NEGATIVE Leu/ul (NEGATIVE); UR MUCUS FEW /HPF (NONE SEEN); UR NITRITE (Dip) NEGATIVE (NEGATIVE); UR RBC 1 /HPF (0-5); UR SPECIFIC GRAVITY (Dip) 1.015 (1.003-1.030); UR TOTAL PROTEIN (Dip) 1+ mg/dl (NEGATIVE); UR UROBILINOGEN (Dip) NEGATIVE (NEGATIVE); UR WBC 3 /HPF (0-5)
[2018-11-02 14:14] LABS: SODIUM,URINE RANDOM 97 mmol/L (30-90)
[2018-11-02 14:19] LABS: CREATININE,URINE RANDOM 37.73 mg/dl (20-320)
[2018-11-02] MEDS: MEROPENEM 1 GM/50ML(PMX) 50 ML IVPB (15:12)
[2018-11-02 15:13] LABS: ANION GAP 9 (5-13); BLOOD UREA NITROGEN 23 mg/dl (7-20); CALCIUM 9.5 mg/dl (8.4-10.2); CARBON DIOXIDE 24 mmol/L (21-31); CHLORIDE 121 mmol/L (97-110); CREATININE 1.07 mg/dl (0.44-1.00); GLUCOSE 195 mg/dl (70-220); POTASSIUM 3.3 mmol/L (3.5-5.1); SODIUM 154 mmol/L (135-144)
[2018-11-02] MEDS ORDERED: PHENYLephrine 20MG IN 250 ML 250 ML (17:51)
[2018-11-02] MEDS: PHENYLephrine 20MG IN 250 ML 250 ML IV ×4 (18:00→23:15)
[2018-11-02] MEDS: SOD CHLORIDE 0.9% 250 ML IV (18:14)
[2018-11-02] MEDS ORDERED: CEFEPIME 1GM/50 ML (PMX) 50 ML IVPB (21:00)
[2018-11-03] MEDS: ACCU-CHEK XX ×15 (00:13→12:48)
[2018-11-03] MEDS: METOCLOPRAMIDE 10 MG INJ IV ×3 (00:19→12:41)
[2018-11-03] MEDS: NORepinephrine 8MG/250 ML (PMX 250 ML IV ×2 (01:17→09:15)
[2018-11-03] MEDS: PHENYLephrine 40 MG in DEXTROSE 5% 246 ML IV ×4 (01:24→11:59)
[2018-11-03] MEDS: MEROPENEM 1 GM/50ML(PMX) 50 ML IVPB (03:19)
[2018-11-03] MEDS: SOD CHLORIDE 0.9% 1,000 ML IV (04:00)
[2018-11-03] MEDS: PROPOFOL 100 ML IV (04:16)
[2018-11-03 05:06] LABS: ADD MAN DIFF? NO
[2018-11-03 05:13] LABS: BASOPHIL # 0.1 10^3/ul (0.0-0.1); BASOPHILS % 0.4 % (0.0-2.0); HEMATOCRIT 26.5 % (37.0-47.0); HEMOGLOBIN 8.3 g/dl (12.0-16.0); LYMPHOCYTES # 2.2 10^3/ul (0.8-2.9); LYMPHOCYTES % 16.6 % (15.0-51.0); MEAN CORPUSCULAR HEMOGLOBIN 37.1 pg (29.0-33.0); MEAN CORPUSCULAR HGB CONC 31.3 g/dl (32.0-37.0); MEAN CORPUSCULAR VOLUME 118.3 fl (82.0-101.0); MEAN PLATELET VOLUME 11.6 fl (7.4-10.4); MONOCYTE # 1.1 10^3/ul (0.3-0.9); MONOCYTES % 8.1 % (0.0-11.0); NEUTROPHIL # 9.6 10^3/ul (1.6-7.5); NEUTROPHILS % 74.1 % (39.0-77.0); NUCLEATED RED BLOOD CELLS # 0.1 10^3/ul (0.0-0.0); NUCLEATED RED BLOOD CELLS% 0.5 /100WBC (0.0-0.0); PLATELET COUNT 220 10^3/UL (140-415); RED BLOOD COUNT 2.24 10^6/ul (4.20-5.40); RED CELL DISTRIBUTION WIDTH 14.4 % (11.5-14.5)
[2018-11-03 05:40] LABS: URIC ACID 10.8 mg/dl (3.1-7.9)
[2018-11-03 05:49] LABS: ALANINE AMINOTRANSFERASE 168 IU/L (13-69); ALBUMIN 3.1 g/dl (3.3-4.9); ALKALINE PHOSPHATASE 54 IU/L (42-121); ANION GAP 17 (5-13); ASPARTATE AMINO TRANSFERASE 360 IU/L (15-46); BILIRUBIN,INDIRECT 0.6 mg/dl (0-1.1); BILIRUBIN,TOTAL 0.6 mg/dl (0.2-1.3); BLOOD UREA NITROGEN 19 mg/dl (7-20); CALCIUM 8.8 mg/dl (8.4-10.2); CARBON DIOXIDE 11 mmol/L (21-31); CHLORIDE 124 mmol/L (97-110); CREATININE 1.34 mg/dl (0.44-1.00); GLUCOSE 122 mg/dl (70-220); POTASSIUM 3.6 mmol/L (3.5-5.1); SODIUM 152 mmol/L (135-144)
[2018-11-03 05:50] LABS: ALBUMIN/GLOBULIN RATIO 1.06; CHOL/HDL RATIO 5.7 RATIO; CHOLESTEROL 150 mg/dl (100-200); HDL CHOLESTEROL 26 mg/dl (33-92)
[2018-11-03 05:55] LABS: FREE T4 (FREE THYROXINE) 1.22 ng/dl (0.78-2.44)
[2018-11-03] MEDS: PANTOPRAZOLE 40 MG INJ IV (05:58)
[2018-11-03] MEDS: LEVOTHYROXINE 150 MCG TAB GTB (06:02)
[2018-11-03 06:03] LABS: TRIGLYCERIDES 813 mg/dl (0-149)
[2018-11-03] MEDS: ASPIRIN 300 MG SUPP PR (08:26)
[2018-11-03] MEDS: ENOXAPARIN 30 MG/0.3 ML SYG SC (08:27)
[2018-11-03] MEDS: VANCOMYCIN IVPB (08:57)
[2018-11-03] MEDS: SOD CHLORIDE 0.9% IVPB (08:57)
[2018-11-03] MEDS: BACLOFEN 10 MG TAB GTB (09:00)
[2018-11-03] MEDS: ASCORBIC ACID 500 MG TAB GTB (09:00)
[2018-11-03] MEDS: CLOPIDOGREL 75 MG TAB GTB (09:00)
[2018-11-03] MEDS: FOLIC ACID 1 MG TAB GTB (09:00)
[2018-11-03] MEDS: LISINOPRIL 10 MG TAB GTB (09:00)
[2018-11-03] MEDS: CYANOCOBALAMIN 500 MCG TAB GTB (09:00)
[2018-11-03] MEDS: MIDAZOLAM (DRIP) 50 mg/50 mL 50 ML IV (09:56)
[2018-11-03 10:05] LABS: AADO2 Arterial 362.4 mmHg (7.0-24.0); Allen Test ACCEPTAB; Arterial Base Excess -18.9 mmol/L (-3.0-3); Arterial Blood Gas Oxygen Sat 94.2 mmHG (95.0-100.0); Arterial COHb 0.2 % (0.0-3.0); Arterial Fraction of Oxyhgb 93.4 % (93.0-99.0); Arterial MetHb 0.6 % (0.0-1.5); Arterial pCO2 17.7 mmhg (35-45); MODE VENT - AC; Site Left Radial
[2018-11-03] MEDS: FENTAnyl (DRIP) 1000 mcg/100mL 100 ML IV (10:08)
[2018-11-03] MEDS ORDERED: NA BICARBONATE 8.4% 50 ML SYG (10:22)
[2018-11-03] MEDS: NA BICARBONATE 8.4% 50 ML SYG IV (10:34)
[2018-11-03] MEDS: VASOPRESSIN 60 UNIT in DEXTROSE 5% 57 ML IV (10:44)
[2018-11-03] MEDS: ALBUMIN HUMAN 25% 100 ML IV (11:52)
[2018-11-03] MEDS: SODIUM BICARBONATE (IV ADD) 150 MEQ in DEXTROSE 5% 1,000 ML IV (12:02)
[2018-11-03] MEDS: FUROSEMIDE 40 MG INJ IV (12:44)
[2018-11-03] MEDS ORDERED: ACETAMINOPHEN 650MG/20.3ML CUP GTB (13:30)
[2018-11-03] MEDS ORDERED: ONDANSETRON 4 MG INJ IV (13:30)
[2018-11-03] MEDS ORDERED: LORAZEPAM 2 MG INJ IV (13:30)
[2018-11-03] MEDS ORDERED: ATROPINE 1% 5 ML OPH SL (13:30)
[2018-11-03] MEDS ORDERED: morphine (DRIP) 100 MG/100 ML 100 ML IV (15:00)
[2018-11-04] MEDS ORDERED: VANCOMYCIN 500 MG (PMX) 100 ML IVPB (09:30)
== END 2018-11-03 16:25 | disposition expired | DRG 871 ==
LOC: E/R 20:38 → ICU 11-01 00:23
PROC: 5A1945Z Respiratory Ventilation, 24-96 Consecutive Hours (ICD-10-PCS; principal; 2018-11-02)
PROC: 0BH17EZ Insertion of Endotracheal Airway into Trachea, Via Natural or Artificial Opening (ICD-10-PCS; 2018-11-02)
DX: A41.9 Sepsis, unspecified organism (principal); L89.153 Pressure ulcer of sacral region, stage 3; R65.21 Severe sepsis with septic shock; N17.0 Acute kidney failure with tubular necrosis; J18.9 Pneumonia, unspecified organism; J96.01 Acute respiratory failure with hypoxia; E87.0 Hyperosmolality and hypernatremia; E87.2 Acidosis; I69.354 Hemiplegia and hemiparesis following cerebral infarction affecting left non-dominant side; D64.9 Anemia, unspecified; E11.65 Type 2 diabetes mellitus with hyperglycemia; E03.9 Hypothyroidism, unspecified; E83.52 Hypercalcemia; E11.51 Type 2 diabetes mellitus with diabetic peripheral angiopathy without gangrene; I25.10 Atherosclerotic heart disease of native coronary artery without angina pectoris; I25.2 Old myocardial infarction; I69.320 Aphasia following cerebral infarction; Y95 Nosocomial condition; Z66 Do not resuscitate; Z51.5 Encounter for palliative care; Z93.1 Gastrostomy status; Z95.5 Presence of coronary angioplasty implant and graft; Z95.828 Presence of other vascular implants and grafts; Z74.01 Bed confinement status; Z79.02 Long term (current) use of antithrombotics/antiplatelets; Z79.82 Long term (current) use of aspirin; Z79.4 Long term (current) use of insulin
CPT/HCPCS: 31500; 36415; 36600; 71045; 74018; 80048; 80053; 80061; 81001; 81003; 82570; 82803; 82962; 83036; 83605; 83690; 83735; 84145; 84300; 84439; 84443; 84484; 84560; 85025; 85610; 85730; 86850; 86900; 86901; 87040-91; 87070; 87081; 87086; 89190; 93005; 93306; 94002; 94003; 94640; 94664; 94770; 96374; 96375; 99285-25